=== PATIENT | male | born 1955 | race Caucasian/White ===

== ENCOUNTER 2018-05-31 18:04 | Emergency (ER) | payer BC ==
[~2018-05-31] VITALS: Ht 175.3 cm; Wt 88.6 kg
[2018-05-31 18:31] VITALS: Ht 175.3 cm; Wt 88.6 kg
[2018-05-31 19:49] VITALS: BP 144/93
== END 2018-05-31 19:49 | disposition home or self-care (01) ==
LOC: ED 18:04
DX: R33.9 Retention of urine, unspecified (principal); R10.30 Lower abdominal pain, unspecified

== ENCOUNTER 2018-07-29 08:20 | Emergency (ER) | payer BC ==
[~2018-07-29] VITALS: Ht 172.7 cm; Wt 86.6 kg
[2018-07-29 08:25] VITALS: Ht 172.7 cm; Wt 86.6 kg
[2018-07-29 09:20] LABS: UA SPECIFIC GRAVITY <=1.005 (1.005-1.035); microscopic required? YES; urine erythrocyte 2+ (NEGATIVE)
[2018-07-29 10:45] VITALS: BP 140/82
== END 2018-07-29 10:45 | disposition home or self-care (01) ==
LOC: ED 08:20
PROVIDERS: Specialist
DX: N40.1 Benign prostatic hyperplasia with lower urinary tract symptoms (principal); R33.8 Other retention of urine; I10 Essential (primary) hypertension